=== PATIENT | female | born 1965 | race Caucasian/White ===

== ENCOUNTER → 2021-06-16 | Outpatient (CLI) | payer BC, OTHER ==
[~2021-06-16] MED LIST: ALBU17IN INH; BENGAY TOP; CELE1CAP4 PO; CYMB60CA4 PO; HYDR50TA70 PO; LAMI25TA PO; LAMO100T80 PO; PROT20TA11 PO; SYMB16INH INH; SYMB80INH INH; XANA0.25 PO; ZANA2CAP PO; [UNRECOGNIZED DRUG - CODE] PO
[2021-06-16 15:50] LABS: CREATININE,RANDOM URINE 82.5 MG/DL; TOTAL PROTEIN,RANDOM URINE 11.1 MG/DL (0.0-12.0)
[2021-06-16 16:09] LABS: APPEARANCE, URINE HAZY (CLEAR); BACTERIA, URINE AUTO NEGATIVE (NEGATIVE); BASO % 0.3 % (0.0-1.0); BILIRUBIN, URINE AUTO NEGATIVE (NEGATIVE); BLOOD, URINE BLOOD NEGATIVE (NEGATIVE); COLOR, URINE YELLOW (YELLOW); EOS # 0.1 10^3/uL (0.0-0.5); EOS % 1.4 % (0.0-3.0); GLUCOSE, URINE (UA) AUTO NEGATIVE (NEGATIVE); HEMATOCRIT 34.7 % (36.0-47.0); HEMOGLOBIN 11.4 g/dl (12.0-15.5); KETONE, URINE AUTO NEGATIVE (NEGATIVE); LEUKOCYTE ESTERASE, URINE AUTO NEGATIVE (NEGATIVE); LYMPH # 2.2 10^3/uL (1.5-5.0); LYMPH % 38.2 % (24.0-44.0); MEAN CORPUSCULAR HEMOGLOBIN 30.2 pg (27.0-33.0); MEAN CORPUSCULAR HGB CONC 32.9 g/dl (32.0-36.5); MEAN CORPUSCULAR VOLUME 91.8 fl (80.0-96.0); MONO # 0.4 10^3/uL (0.0-0.8); MONO % 6.8 % (2.0-8.0); NEUTROPHILS # 3.1 10^3/uL (1.5-8.5); NEUTROPHILS % 52.6 % (36.0-66.0); NITRITE, URINE AUTO NEGATIVE (NEGATIVE); PLATELET COUNT, AUTOMATED 207 10^3/uL (150-450); PROTEIN, URINE AUTO NEGATIVE (NEGATIVE); RBC, URINE AUTO 2 /HPF (0-3); RED BLOOD COUNT 3.78 10^6/uL (4.00-5.40); SPECIFIC GRAVITY URINE AUTO 1.015 (1.002-1.035); SQUAMOUS EPITHELIAL CELL UR AU 2 /HPF (0-6); UROBILINOGEN, URINE AUTO 0.2 mg/dL (0.0-2.0); WBC, URINE AUTO 1 /HPF (0-3); WHITE BLOOD COUNT 5.9 10^3/uL (4.0-10.0)
[2021-06-16 16:35] LABS: COMPLEMENT C3 111 MG/DL (90-180); COMPLEMENT C4 23 MG/DL (10-40)
[2021-06-16 16:37] LABS: ALBUMIN 3.7 GM/DL (3.2-5.2); ALT/SGPT 34 U/L (12-78); BILIRUBIN,TOTAL 0.2 MG/DL (0.2-1.0); BLOOD UREA NITROGEN 17 MG/DL (7-18); CALCIUM LEVEL 9.2 MG/DL (8.5-10.1); CARBON DIOXIDE LEVEL 33 MEQ/L (21-32); CHLORIDE LEVEL 109 MEQ/L (98-107); CREATININE FOR GFR 0.83 MG/DL (0.55-1.30); GLOMERULAR FILTRATION RATE > 60.0 (>51); GLUCOSE, FASTING 119 MG/DL (70-100); POTASSIUM SERUM 3.5 MEQ/L (3.5-5.1); SODIUM LEVEL 143 MEQ/L (136-145); TOTAL PROTEIN 6.5 GM/DL (6.4-8.2)
[2021-06-16 16:58] LABS: HEPATITIS B SURFACE ANTIGEN NEGATIVE (NEGATIVE)
[2021-06-16 17:25] LABS: HEPATITIS C VIRUS ABY INDEX 0.2 INDEX (<0.8)
[2021-06-16 17:26] LABS: HEPATITIS B CORE ANTIBODY IGM NEGATIVE (NEGATIVE); HIV 1&2 SCREEN CENTAUR NEGATIVE (NEGATIVE)
[2021-06-20 12:12] LABS: ANA (HEP2) Negative (.); ANTI DS-DNA AB Negative (Negative); RNP ANTIBODY < 0.2 AI (0.0-0.9); SMITHS ANTIBODY < 0.2 AI (0.0-0.9); SSA SJOGRENS A 0.2 AI (0.0-0.9); SSB SJOGRENS B <0.2 AI (0.0-0.9)
== END ==
LOC: M LAB 14:35
PROVIDERS: ATTEND Dermatology
DX: C44.622 Squamous cell carcinoma of skin of right upper limb, including shoulder (principal); M32.9 Systemic lupus erythematosus, unspecified

== ENCOUNTER → 2021-06-16 | Outpatient (REF) | payer OTHER, BC | LOC: M SFHCDERM 17:36 | PROVIDERS: ATTEND Dermatology | DX: D23.61 Other benign neoplasm of skin of right upper limb, including shoulder (principal) ==